=== PATIENT | male | born 1960 | race Caucasian/White ===

== ENCOUNTER 2020-03-17 07:20 | Day surgery (SDC) | payer BC ==
[2020-03-10 14:06] LABS: BASOPHILS % (AUTO) 0.7 % (0-1); EOSINOPHILS # (AUTO) 0.2 X10'3 (0-0.9); EOSINOPHILS % (AUTO) 3.5 % (0-6); LYMPHOCYTES # (AUTO) 0.9 X10'3 (1.1-4.8); LYMPHOCYTES % (AUTO) 16.4 % (21-51); MEAN CORPUSCULAR HEMOGLOBIN 30.9 PG (27.0-31.0); MEAN CORPUSCULAR HGB CONC 33.1 g/dL (33.0-36.5); MEAN CORPUSCULAR VOLUME 93.2 FL (78-98); MEAN PLATELET VOLUME 7.2 FL (7.4-10.4); MONOCYTES # (AUTO) 0.4 X10'3 (0-0.9); MONOCYTES % (AUTO) 7.8 % (2-12); NEUTROPHILS # (AUTO) 4.1 X10'3 (1.8-7.7); NEUTROPHILS % (AUTO) 71.6 % (42-75); PRE OP HEMATOCRIT 43.1 % (42.0-52.0); PRE OP HEMOGLOBIN 14.3 g/dL (14.0-17.9); PRE OP PLATELET COUNT 194 X10'3 (140-440); RED BLOOD COUNT 4.63 X10'6 (4.70-6.10); RED CELL DISTRIBUTION WIDTH 13.5 % (11.5-14.5)
[2020-03-10 14:16] LABS: ALBUMIN 3.7 G/DL (3.4-5.0); ALBUMIN/GLOBULIN RATIO 1.4 (1.1-1.5); ALKALINE PHOSPHATASE 63 IU/L (46-116); BLOOD UREA NITROGEN 32 MG/DL (7-18); BUN/CREATININE RATIO 29.9 (5.4-32.0); CALCIUM 8.8 MG/DL (8.5-10.1); CHLORIDE 107 MMOL/L (99-107); CREATININE 1.07 MG/DL (0.60-1.10); PRE OP ALT 32 U/L (30-65); PRE OP ANION GAP 4 (8-16); PRE OP AST 21 U/L (10-37); PRE OP BILIRUB, TOTAL 0.5 MG/DL (0.0-1.0); PRE OP GLUCOSE 107 MG/DL (70-104); PRE OP SODIUM 143 MMOL/L (135-145); TOTAL CARBON DIOXIDE 32.2 MMOL/L (24-32); TOTAL PROTEIN 6.3 G/DL (6.4-8.2); eGFR 70 ML/MIN
[2020-03-17] VITALS (19 sets, daily range): BP systolic 100–138; BP diastolic 64–82
[~2020-03-17] VITALS: Ht 185.4 cm; Wt 79.8 kg
[~2020-03-17 07:20] MED LIST: BUPIVAcaine/PF 2.5 mg/ml (0.25%) 30ml vial ONE; LIDOcaine 1% 30ml preserv. free vial ONE; [UNRECOGNIZED DRUG - CODE] PO; cefazolin/dext.iso 2gm/50ml 50 ML IV ONE; famotidine 20mg tablet PO ONE; ringers solution, lacted 1,000 ML IV SCH
[2020-03-17] MEDS ORDERED: proCHLORperazine 10 MG/2 ml inj IV PRN (08:45)
[2020-03-17] MEDS ORDERED: labetalol 20mg/4ml (5mg/ml) syringe IV PRN (08:45)
[2020-03-17] MEDS ORDERED: ringers solution, lacted 1,000 ML IV SCH (08:45)
[2020-03-17] MEDS ORDERED: meperidine/PF 25mg/ml syringe IV PRN ×3 (08:45)
[2020-03-17] MEDS ORDERED: acetaminophen 1,000mg/100ml IV 100 ML IV PRN (08:45)
[2020-03-17] MEDS ORDERED: morphine 4 MG/ML inj SYRINge IV PRN (08:45)
[2020-03-17] MEDS ORDERED: morphine 2 MG/ML inj. syringe IV PRN (08:45)
[2020-03-17] MEDS ORDERED: hydrALAZINE 20mg/ml inj. IV PRN (08:45)
[2020-03-17] MEDS ORDERED: ondansetron/PF 4mg/2ml inj IV PRN (08:45)
[2020-03-17] MEDS ORDERED: sevoflurane 250ml liquid IH ONE (09:36)
[2020-03-17] MEDS ORDERED: fentaNYL /PF 50mcg/ml 5ml ampule ONE (09:45)
[2020-03-17] MEDS ORDERED: midazolam 2 mg/2 ml injection ONE (09:45)
[2020-03-17] MEDS ORDERED: propofol inj 20 ML IV ONE (11:04)
[2020-03-17] MEDS ORDERED: rocuronium 10mg/ml inj IV ONE (11:04)
[2020-03-17] MEDS ORDERED: ondansetron/PF 4mg/2ml inj ONE (11:04)
[2020-03-17] MEDS ORDERED: LIDOcaine 2% (20mg/ml) 5ml vial ONE (11:04)
[2020-03-17] MEDS ORDERED: dexamethasone sod phosphate 4mg/ml inj. ONE (11:04)
[2020-03-17] MEDS ORDERED: neostigmine methylsulfate 1 MG/ML 10ml vial ONE (11:05)
[2020-03-17] MEDS ORDERED: glycopyrrolate 0.2mg/ml inj ONE (11:08)
--- NOTE | 2020-03-17 11:24 | NUR ---
Received from OR via , accompanied by Anesthesiologist DR SCANLON and report given by Anesthesiolgist. AWAKENS TO VOICE. VITALS STABLE. DRESSINGS DI. ROHIT PAIN. ABD SOFT.
[2020-03-17] MEDS ORDERED: HYDROcodone/acetaminophen 5mg/325mg tablet PO PRN (11:45)
--- NOTE | 2020-03-17 13:14 | NUR ---
Report called to receiving nurse. Transferred via [facility] . Special Issues communicated to receiving nurse. AWAKE AND ORIENTED. VITALS STABLE. DRESSINGS DI. STATES MIN PAIN TO ABD. TO PAS AT THIS TIME.
[2020-03-17] MEDS ORDERED: HYDROcodone/acetaminophen 5mg/325mg tablet PO ONE (13:35)
--- NOTE | 2020-03-17 14:40 | NUR ---
PT WAS ABLE TO VOID 350MLS CLEAR URINE, IV REMOVED, ОЛЬГА FLUIDS, PT MEETS DISCHARGE CRITERIA.
== END 2020-03-17 14:47 | disposition home or self-care (01) ==
LOC: PAS 07:20
PROVIDERS: ATTEND Surgery
DX: K40.20 Bilateral inguinal hernia, without obstruction or gangrene, not specified as recurrent (principal); Z20.828 Contact with and (suspected) exposure to other viral communicable diseases; Z98.890 Other specified postprocedural states; Z72.89 Other problems related to lifestyle; Z82.49 Family history of ischemic heart disease and other diseases of the circulatory system
CPT/HCPCS: 36415; 49650; 80053; 82948; 85025; 87635; 93005; C1781; J1100; J2001; J2250; J2405; J2704; J2710; J3010; J3490; J7120; S2900; A4215; A4618